=== PATIENT | female | born 1970 | race Two or more races ===

== ENCOUNTER 2022-12-21 01:57 | Emergency (ER) | payer BC ==
[~2022-12-21] VITALS: Ht 160 cm; Wt 71.3 kg
[2022-12-21] MEDS ORDERED: NAP500T PO (04:57)
[2022-12-21] MEDS ORDERED: PRED20TA2 PO (04:57)
[2022-12-21 04:58] VITALS: BP 133/60
[2022-12-21] MEDS ORDERED: KETOROLAC TROMETH 60MG/2ML VIAL IM ONE (05:00)
== END 2022-12-21 05:51 | disposition home or self-care (01) ==
LOC: ER 01:57
DX: M06.9 Rheumatoid arthritis, unspecified (principal)
CPT/HCPCS: 96372; 99283; J1885